=== PATIENT | male | born 2000 | race Caucasian/White ===

== ENCOUNTER 2025-05-30 03:08 | Emergency (ER) | payer OTHER ==
[~2025-05-30] VITALS: Ht 172.7 cm; Wt 105.0 kg
[2025-05-30 03:51] LABS: BASOPHILS 0.6 % (0.2-1.2); EOSINOPHILS 7.6 % (0.8-7.0); LYMPHOCYTES 43.7 % (21.8-53.1); MCH 29.8 PG (25.7-32.2); MCHC 34.4 g/dL (32.3-36.5); MCV 86.5 fL (79.0-92.2); MONOCYTES 10.6 % (5.3-12.2); NEUTROPHILS 37.3 % (34.0-67.9); RBC 4.97 M/uL (4.63-6.08)
[2025-05-30 04:12] LABS: ALCOHOL, MEDICAL 117.0 mg/dL (<3); ALT (SGPT) 23.0 U/L (14-59); AST (SGOT) 15.0 U/L (15-37); GLOMERULAR FILTRATION RATE,EST 108.0 mL/min (>60); PROTEIN, TOTAL 7.8 g/dL (6.4-8.2); UREA NITROGEN 14.0 mg/dL (7-18)
[2025-05-30 05:01] LABS: AMPHETAMINES, URINE NEGATIVE (NEGATIVE); BARBITURATES, URINE NEGATIVE (NEGATIVE); BENZODIAZEPINE, URINE NEGATIVE (NEGATIVE); CANNABINOID, URINE NEGATIVE (NEGATIVE); COCAINE, URINE NEGATIVE (NEGATIVE); ECSTASY, URINE NEGATIVE (NEGATIVE); FENTANYL, URINE NEGATIVE (NEGATIVE); METHADONE, URINE NEGATIVE (NEGATIVE); OPIATES, URINE NEGATIVE (NEGATIVE); OXYCODONE, URINE NEGATIVE (NEGATIVE); PHENCYCLIDINE, URINE NEGATIVE (NEGATIVE)
== END 2025-05-30 05:22 | disposition home or self-care (01) ==
LOC: ED 03:08
PROVIDERS: Family Medicine
DX: R41.82 Altered mental status, unspecified (principal)
CPT/HCPCS: 36415; 80053; 80307; 85025; 99284; G0480